=== PATIENT | male | born 1990 | race Two or more races ===

== ENCOUNTER → 2017-01-17 | Emergency (ER) | payer OTHER ==
[~2017-01-17] VITALS: Ht 182.9 cm; Wt 74.8 kg
[~2017-01-17] MED LIST: HYDROCODONE/APAP 10/325MG 1 EA TABLET ONE; HYDROCODONE/APAP 10/325MG 1 EA TABLET PO ONE; ONDANSETRON 4 MG TAB.RAPDIS ONE; ONDANSETRON 4 MG TAB.RAPDIS SL ONE
[2017-01-17 14:29] VITALS: BP 124/78
== END | disposition home or self-care (01) ==
LOC: ER 14:14
DX: S89.91XA Unspecified injury of right lower leg, initial encounter (principal); X58.XXXA Exposure to other specified factors, initial encounter; Y93.67 Activity, basketball; Y92.89 Other specified places as the place of occurrence of the external cause; Y99.8 Other external cause status
CPT/HCPCS: 73564-TC; A4606; Q0162; Z7610